=== PATIENT | male | born 1945 | race Caucasian/White ===

== ENCOUNTER → 2017-03-25 10:35 | Outpatient (CLI) | payer MEDICARE, BC ==
[2013-08-22 11:04] VITALS: BMI 26.8
[~2017-03-25 10:35] MED LIST: ASPIRIN325 MG PO; BENADRYL50 MG PO; NIASPAN1000 MG PO; PRAVACHOL10 MG PO; PRINIVIL20 MG PO; PROTONIX40 MG PO
== END | disposition home or self-care (01) ==
LOC: D.RT 10:35
DX: J44.9 Chronic obstructive pulmonary disease, unspecified (principal)

== ENCOUNTER → 2018-05-04 08:29 | Outpatient (CLI) | payer MEDICARE, BC ==
[2013-08-22 11:04] VITALS: BMI 26.8
== END | disposition home or self-care (01) ==
LOC: D.RT 08:29
DX: J44.9 Chronic obstructive pulmonary disease, unspecified (principal)

== ENCOUNTER 2018-10-11 12:04 | Inpatient (IN) | payer MEDICARE, BC ==
[2018-10-11] VITALS (12 sets, daily range): BP systolic 119–160; BP diastolic 73–94; BMI 24.8
[~2018-10-11] VITALS: Ht 175.3 cm; Wt 75.5 kg
--- NOTE | ~2018-10-11 | HP ---
PATIENT: ABIMBOLA MERIDA JR MEDICAL RECORD: [id number] ACCOUNT: [id number] LOCATION:[facility] D.2305 : [birth year] ADMISSION DATE: 10/11/18 PCP: JODI HERNANDEZ DO HISTORY AND PHYSICAL EXAMINATION HISTORY OF PRESENT ILLNESS: A 73-year-old male presented to the clinic with acute onset of bright red blood per rectum, started this morning. Moderate amounts of dark maroon blood per rectum. No formed stool. 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 Of note, the patient also recently restarted taking meloxicam. PAST MEDICAL HISTORY: Significant for hypertension, arthralgia, hyperlipidemia, COPD, diabetes, diet controlled. REVIEW OF SYSTEMS: GENERAL: No acute change in weight or appetite. HEENT: No cephalgia, visual changes, tinnitus, epistaxis, or dysphagia. CARDIOVASCULAR: Denies chest pain, denies palpitations. PULMONARY: Denies hemoptysis, denies night sweats. GASTROINTESTINAL: Denies hematemesis, hematochezia or melena. Does admit chdehb-hp-wmi blood per rectum, acute onset, starting this morning as noted above, multiple subsequent episodes. GENITOURINARY: Denies dysuria. MUSCULOSKELETAL: No acute changes. ENDOCRINE: Denies polyuria, polydipsia, or polyphagia. PHYSICAL EXAMINATION: VITAL SIGNS: Weight 170 pounds, blood pressure is 126/80, heart rate 88, respirations 18, O2 sats 98% on room air, temperature is 97.4. GENERAL: Alert, oriented, anxious secondary to the symptoms. HEENT: Head: Normocephalic, atraumatic. Eyes: Pupils are equally round and reactive. Ears: Canals patent. TMs are intact. Nose: Nares patent without drainage. Throat: No erythema. No exudates. NECK: Supple. No lymphadenopathy. No JVD. HEART: Regular rate and rhythm. No S3 or S4. No rub. LUNGS: Clear to auscultation bilaterally. Breathing is nonlabored. ABDOMEN: Soft, nontender. Bowel sounds in all 4 quadrants. RECTAL EXAM: Maroon-colored blood perirectally. No palpable rectal masses. Stool was grossly positive as well as Hemoccult positive. EXTREMITIES: Present times 4. NEUROLOGIC: Intact. SKIN: Warm and dry. No rash. LABORATORY DATA: CBC: White count 7.3, hemoglobin 14.1, hematocrit 43.6, platelets 183. ASSESSMENT AND PLAN: Acute GI bleed. The patient admitted. IV normal saline at 75 mL per hour. The patient is admitted to ICU. H&H every 8 hours. Consult GI, Dr. Mendiola. Diet, n.p.o. Protonix 40 mg IV every 12 hours. CBC and CMP on admission and in a.m. Type and screen. TRANSINT:[id number] Voice Confirmation ID: [id number] DOCUMENT ID: [id number] HISTORY AND PHYSICAL [id number] ABIMBOLA MERIDA JR, ROBERT DO at 0754 CC: [id number] DICTATION DATE: 10/11/18 114 PROJECT EXECUTIVE: 10/11/18 1237 ADM IN [place] [id number]
--- NOTE | ~2018-10-11 | MORECARE ---
CASE MANAGEMENT DISCHARGE SUMMARY PATIENT: ABIMBOLA MERIDA UNIT: [id number] ADM DATE: 10/11/18 AGE: 73 : 43 SEX: M ROOM/BED: D.1213 AUTHOR: NATHALYDOC PHYSICIAN: REFERRING PHYSICIAN: JODI HERNANDEZ DO DATE OF SERVICE: 10/14/18 Discharge Plan Patient Name: ABIMBOLA MERIDA Facility: [facility]:[place] : 1945 Planned Disposition: Home Anticipated Discharge Date: Discharge Date: 10/14/2018 Expected LOS: Initial Reviewer: [email or web address] Initial Review Date: 10/11/2018 Generated: 10/14/18 8:55 pm Comments DCP- Discharge Planning Updated by [email or web address]: Ingrid Lopez on 10/14/18 6:[address] LATE ENTRY 10/14/18 @ 1235 IMM EXPLAINED AND SERVED @ 1235 DENIES ANY DISCHARGE NEEDS DCP- Discharge Planning Updated by [email or web address]: Ingrid Lopez on 10/13/18 8:[address] LATE ENTRY 10/13/18 @ 1130 Patient Name: ABIMBOLA MERIDA Admission Status: Elective Accout number: [id number] Admission Date: 10-11-2018 : 1945 Admission Diagnosis:GASTROINTESTINAL HEMORRHAGE, UNSPECIFIED Attending: JODI HERNANDEZ Current LOS: 2 Anticipated DC Date: Planned Disposition: Home Primary Insurance: MEDICARE A & B Discharge Planning Comments: CM met with patient at bedside after obtaining verbal consent. Patient states he plans on returning home after discharge with his . Patient states he will have family transport him home via private vehicle. Patient denies any discharge needs at this time. CM will continue to follow and assist as needed for discharge planning / needs. Speech Communication Professor: Ingrid Lopez DCPIA - Discharge Planning Initial Assessment Updated by [email or web address]: Ingrid Lopez on 10/13/18 9:37 pm * Is the patient Alert and Oriented? Yes * How many steps to enter\exit or inside your home? * PCP DAVID * Pharmacy [facility] * Preadmission Environment Home with Family * ADLs Independent * Equipment Nebulizer * List name and contact numbers for known caregivers / representatives who currently or will assist patient after discharge: OMAR MERIDA [phone] * Verbal permission to speak to the caregivers and representatives has been obtained from the patient. Yes * Community resources currently utilized None * Additional services required to return to the preadmission environment? No * Can the patient safely return to the preadmission environment? Yes * Has this patient been hospitalized within the prior 30 days at any hospital? No Coverage Notice Reviewer: [email or web address] Luis F Lopez Notice Issued Date-Time: 10/14/2018 12:35 Notice Type: IM Discharge Notice Notice Delivered To: Patient Relationship to Patient: Self Medical Technicians Name: Delivery Method: HAND - Hand Delivered Regi Days: Prior Verbal Notification: Recipient Understood Notice: Yes Recipient Signature: Yes Med Rec Note Co-signed by Attending: Coverage Notice Comment: Last DP export: 10/13/18 8:39 Patient Name: ABIMBOLA MERIDA Page [id number] at 1956 All edits/amendments must be made on the electronic document DICTATION DATE: 10/14/181954 LICENSED THERAPIST: ALBERT 10/14/181954 RPT#: [id number] DC DATE:10/14/18 STATUS: DIS IN [facility] [address] [place] [address] END OF REPORT
--- NOTE | ~2018-10-11 | DS ---
PATIENT:ABIMBOLA MERIDA JR :41 MEDICAL RECORD: [id number] DISCHARGE SUMMARY ADMISSION DATE: 10/11/18 DISCHARGE DATE: 10/14/18 DATE OF ADMISSION: 10/11/2018 DATE OF DISCHARGE: 10/14/2018 ADMISSION DIAGNOSIS: Acute gastrointestinal bleed. DISCHARGE DIAGNOSIS: Acute gastrointestinal bleed, likely from hemorrhaging diverticula. CONSULTS: Gastroenterology. PROCEDURES: CT of the abdomen and pelvis with no significant findings. EGD and colonoscopy with dark blood in a diverticula, no active bleeding. HOSPITAL COURSE: The patient was admitted to the clinic with multiple episodes of maroon blood per rectum. The patient was admitted to the ICU. Serial H&H did not require transfusion. GI consulted. Had slight drop in his H&H from 14.5-10.8. Underwent EGD and colonoscopy with no active bleeding, but findings of clotted blood in a diverticula, no active bleeding. The patient was cleared for discharge home. The patient discharged to home in stable and improved condition. Anxious to go home, tolerating regular diet. We will follow up in the clinic in 2 weeks and as needed. PHYSICAL EXAMINATION: VITAL SIGNS ON DISCHARGE: Temperature 98.8, blood pressure is 133/65, heart rate 95, respirations 16, and O2 sats 94% on room air. HEART: Regular rate and rhythm. LUNGS: Clear. ABDOMEN: Soft, nontender. EXTREMITIES: Present times 4. NEUROLOGIC: Intact. LABORATORY DATA: CBC: White count 5.1, hemoglobin 10.8, hematocrit 33.2, platelets 148. Diet as tolerated. MEDICATIONS: Per med rec. DISCHARGE INSTRUCTIONS: Avoid NSAIDs. Follow up with GI. TRANSINT:[id number] Voice Confirmation ID: [id number] DOCUMENT ID: [id number] JODI HERNANDEZ DO at 0945 CC: [id number] DICTATION DATE: 10/14/18 1621 LANGUAGE THERAPIST: 10/15/18 0655 DIS IN 10/14/[address] [address]
--- NOTE | ~2018-10-11 | MORECARE ---
CASE MANAGEMENT DISCHARGE SUMMARY PATIENT: ABIMBOLA MERIDA UNIT: [id number] ADM DATE: 10/11/18 AGE: 73 : 43 SEX: M ROOM/BED: D.1213 AUTHOR: NATHALYDOC PHYSICIAN: REFERRING PHYSICIAN: JODI HERNANDEZ DO DATE OF SERVICE: 10/13/18 Discharge Plan Patient Name: ABIMBOLA MERIDA Facility: [facility]:[place] : 1945 Planned Disposition: Home Anticipated Discharge Date: Discharge Date: Expected LOS: Initial Reviewer: [email or web address] Initial Review Date: 10/11/2018 Generated: 10/13/18 10:39 pm Comments DCP- Discharge Planning Updated by [email or web address]: Ingrid Lopez on 10/13/18 8:[address] LATE ENTRY 10/13/18 @ 1130 Patient Name: ABIMBOLA MERIDA Admission Status: Elective Accout number: [id number] Admission Date: 10-11-2018 : 1945 Admission Diagnosis:GASTROINTESTINAL HEMORRHAGE, UNSPECIFIED Attending: JODI HERNANDEZ Current LOS: 2 Anticipated DC Date: Planned Disposition: Home Primary Insurance: MEDICARE A & B Discharge Planning Comments: CM met with patient at bedside after obtaining verbal consent. Patient states he plans on returning home after discharge with his . Patient states he will have family transport him home via private vehicle. Patient denies any discharge needs at this time. CM will continue to follow and assist as needed for discharge planning / needs. Answering Service Agent: Ingrid Lopez DCPIA - Discharge Planning Initial Assessment Updated by [email or web address]: Ingrid Lopez on 10/13/18 9:37 pm * Is the patient Alert and Oriented? Yes * How many steps to enter\exit or inside your home? * PCP DAVID * Pharmacy [facility] * Preadmission Environment Home with Family * ADLs Independent * Equipment Nebulizer * List name and contact numbers for known caregivers / representatives who currently or will assist patient after discharge: OMAR MERIDA [phone] * Verbal permission to speak to the caregivers and representatives has been obtained from the patient. Yes * Community resources currently utilized None * Additional services required to return to the preadmission environment? No * Can the patient safely return to the preadmission environment? Yes * Has this patient been hospitalized within the prior 30 days at any hospital? No Patient Name: ABIMBOLA MERIDA Page 53612 at 2139 All edits/amendments must be made on the electronic document DICTATION DATE: 10/13/182137 UX ARCHITECT: ALBERT 10/13/182137 RPT#: [id number] DC DATE: STATUS: ADM IN [facility] [address] [place] [address] END OF REPORT
[2018-10-11 12:56] LABS: BASOPHILS 1.3 % (0-2); HEMATOCRIT 43.6 % (42.0-54.0); HEMOGLOBIN 14.5 g/dL (13.5-17.5); IMMATURE GRANULOCYTES 0.1 % (0-5); LYMPHOCYTES 22.2 % (15-50); MCH 31.7 pg (26.0-34.0); MCHC 33.3 g/dL (31.0-37.0); MCV 95.2 fL (80.0-100.0); MEAN PLATELET VOLUME 11.8 fL (7.4-10.4); MONOCYTES 12.7 % (2-11); NEUTROPHILS 61.7 % (40-80); PLATELET COUNT 188 10x3/uL (130-400); RBC 4.58 10x6/uL (4.20-6.10); RDW 12.7 % (11.5-14.5); WBC 7.2 10x3/uL (4.8-10.8)
[2018-10-11 13:24] LABS: ALBUMIN 4.1 g/dL (3.4-5.0); ANION GAP 15.4 mmol/L (8-16); BILIRUBIN - TOTAL 0.55 mg/dL (0.2-1.3); CALCIUM 9.2 mg/dL (8.5-10.1); CARBON DIOXIDE 23.9 mmol/L (21.0-32.0); CREATININE - SERUM 1.3 mg/dL (0.6-1.3); PROTEIN - SERUM 8.1 g/dL (6.4-8.2)
[2018-10-11 13:27] LABS: POTASSIUM - SERUM 5.3 mmol/L (3.5-5.1)
[2018-10-11 21:27] LABS: BASOPHILS 0.5 % (0-2); EOSINOPHILS 1.5 % (0-7); HEMATOCRIT 41.8 % (42.0-54.0); IMMATURE GRANULOCYTES 0.2 % (0-5); LYMPHOCYTES 20.2 % (15-50); MCHC 33.5 g/dL (31.0-37.0); MCV 95.4 fL (80.0-100.0); MEAN PLATELET VOLUME 11.6 fL (7.4-10.4); MONOCYTES 11.6 % (2-11); PLATELET COUNT 190 10x3/uL (130-400); RBC 4.38 10x6/uL (4.20-6.10); RDW 12.6 % (11.5-14.5)
[2018-10-11 21:32] LABS: WBC 11.1 10x3/uL (4.8-10.8)
[2018-10-12] VITALS (10 sets, daily range): BP systolic 111–144; BP diastolic 48–85; Ht 175.3 cm; Wt 75.5 kg
[2018-10-12 04:31] LABS: HEMATOCRIT 40.2 % (42.0-54.0); HEMOGLOBIN 13.1 g/dL (13.5-17.5)
[2018-10-12 04:41] LABS: INR 1.08 (0.85-1.17); PROTIME 13.5 SECONDS (11.6-15.0)
[2018-10-12 04:47] LABS: ANION GAP 13.2 mmol/L (8-16); CALCIUM 8.7 mg/dL (8.5-10.1); CARBON DIOXIDE 26.8 mmol/L (21.0-32.0); CREATININE - SERUM 1.2 mg/dL (0.6-1.3)
[2018-10-12 14:19] LABS: HEMATOCRIT 37.6 % (42.0-54.0); HEMOGLOBIN 12.5 g/dL (13.5-17.5)
[2018-10-12 21:00] LABS: HEMATOCRIT 33.9 % (42.0-54.0); HEMOGLOBIN 11.1 g/dL (13.5-17.5)
[2018-10-13] VITALS (14 sets, daily range): BP systolic 101–155; BP diastolic 54–91
[2018-10-13 04:53] LABS: BASOPHILS 1.4 % (0-2); HEMATOCRIT 34.3 % (42.0-54.0); HEMOGLOBIN 11.6 g/dL (13.5-17.5); LYMPHOCYTES 33.1 % (15-50); MCHC 33.8 g/dL (31.0-37.0); MCV 94.8 fL (80.0-100.0); MEAN PLATELET VOLUME 11.6 fL (7.4-10.4); MONOCYTES 13.7 % (2-11); NEUTROPHILS 49.8 % (40-80); PLATELET COUNT 154 10x3/uL (130-400); RBC 3.62 10x6/uL (4.20-6.10); RDW 12.8 % (11.5-14.5)
[2018-10-13 05:09] LABS: WBC 5.1 10x3/uL (4.8-10.8)
[2018-10-13 05:23] LABS: ALBUMIN 3.3 g/dL (3.4-5.0); ANION GAP 11.6 mmol/L (8-16); BILIRUBIN - TOTAL 0.44 mg/dL (0.2-1.3); CALCIUM 8.1 mg/dL (8.5-10.1); CREATININE - SERUM 1.1 mg/dL (0.6-1.3); POTASSIUM - SERUM 3.6 mmol/L (3.5-5.1); PROTEIN - SERUM 6.3 g/dL (6.4-8.2)
[2018-10-13 14:27] LABS: HEMATOCRIT 36.1 % (42.0-54.0); HEMOGLOBIN 11.9 g/dL (13.5-17.5)
[2018-10-13 20:52] LABS: HEMATOCRIT 33.8 % (42.0-54.0); HEMOGLOBIN 11.2 g/dL (13.5-17.5)
[2018-10-14] VITALS: BP 113/53
[2018-10-14 04:00] VITALS: BP 106/46
[2018-10-14 06:47] LABS: BASOPHILS 1.4 % (0-2); EOSINOPHILS 2.3 % (0-7); HEMATOCRIT 33.2 % (42.0-54.0); HEMOGLOBIN 10.8 g/dL (13.5-17.5); IMMATURE GRANULOCYTES 0.2 % (0-5); MCHC 32.5 g/dL (31.0-37.0); MCV 95.4 fL (80.0-100.0); MEAN PLATELET VOLUME 11.7 fL (7.4-10.4); MONOCYTES 11.5 % (2-11); NEUTROPHILS 60.6 % (40-80); PLATELET COUNT 148 10x3/uL (130-400); RBC 3.48 10x6/uL (4.20-6.10); WBC 5.1 10x3/uL (4.8-10.8)
[2018-10-14 07:00] LABS: CALCIUM 8.1 mg/dL (8.5-10.1); CARBON DIOXIDE 26.3 mmol/L (21.0-32.0); CREATININE - SERUM 1.1 mg/dL (0.6-1.3); POTASSIUM - SERUM 3.3 mmol/L (3.5-5.1)
[2018-10-14 11:25] VITALS: BP 130/60
[2018-10-14 15:29] VITALS: BP 133/65
== END 2018-10-14 17:30 | disposition home or self-care (01) | DRG 378 ==
LOC: D.SDCHOLD 12:04 → D.ICU 12:04 → D.M3 10-13 10:43
PROVIDERS: Family Medicine; Internal Medicine Gastroenterology
PROC: 0DB68ZX Excision of Stomach, Via Natural or Artificial Opening Endoscopic, Diagnostic (ICD-10-PCS; 2018-10-14)
PROC: 0DB58ZX Excision of Esophagus, Via Natural or Artificial Opening Endoscopic, Diagnostic (ICD-10-PCS; 2018-10-14)
PROC: 0DBP8ZZ Excision of Rectum, Via Natural or Artificial Opening Endoscopic (ICD-10-PCS; 2018-10-14)
PROC: 0DB98ZX Excision of Duodenum, Via Natural or Artificial Opening Endoscopic, Diagnostic (ICD-10-PCS; principal; 2018-10-14 07:00)
DX: K57.31 Diverticulosis of large intestine without perforation or abscess with bleeding (principal); D62 Acute posthemorrhagic anemia; I10 Essential (primary) hypertension; J44.9 Chronic obstructive pulmonary disease, unspecified; E11.9 Type 2 diabetes mellitus without complications; K44.9 Diaphragmatic hernia without obstruction or gangrene; K20.9 Esophagitis, unspecified; K29.70 Gastritis, unspecified, without bleeding; K29.80 Duodenitis without bleeding; K64.8 Other hemorrhoids; K62.1 Rectal polyp

== ENCOUNTER → 2019-05-01 10:32 | Outpatient (CLI) | payer MEDICARE, BC ==
[2018-10-12 11:01] VITALS: BMI 24.5
== END | disposition home or self-care (01) ==
LOC: D.RT 10:32
PROVIDERS: ATTEND Internal Medicine Pulmonary Disease
DX: J44.9 Chronic obstructive pulmonary disease, unspecified (principal)

== ENCOUNTER → 2020-07-13 10:16 | Outpatient (CLI) | payer MEDICARE, BC ==
[2018-10-12 11:01] VITALS: BMI 24.5
== END | disposition home or self-care (01) ==
LOC: D.LABREF 10:16
PROVIDERS: ATTEND Internal Medicine Pulmonary Disease
DX: J44.9 Chronic obstructive pulmonary disease, unspecified (principal)

== ENCOUNTER → 2020-07-16 08:41 | Outpatient (CLI) | payer MEDICARE, BC ==
[2018-10-12 11:01] VITALS: BMI 24.5
== END | disposition home or self-care (01) ==
LOC: D.RT 08:41
PROVIDERS: ATTEND Internal Medicine Pulmonary Disease
DX: J44.9 Chronic obstructive pulmonary disease, unspecified (principal)

== ENCOUNTER 2021-02-12 11:36 | Day surgery (SDC) | payer MEDICARE, BC ==
[~2021-02-12] VITALS: Ht 175.3 cm; Wt 63.6 kg
[2021-02-12 12:04] LABS: BASOPHILS 0.6 % (0-2); EOSINOPHILS 0.4 % (0-7); HEMATOCRIT 38.9 % (42.0-54.0); HEMOGLOBIN 12.4 g/dL (13.5-17.5); IMMATURE GRANULOCYTES 0.1 % (0-5); LYMPHOCYTE ABS# 0.78 10x3/uL (1.32-3.57); LYMPHOCYTES 11.4 % (15-50); MCH 30.2 pg (26.0-34.0); MCHC 31.9 g/dL (31.0-37.0); MCV 94.9 fL (80.0-100.0); MONOCYTES 6.7 % (2-11); NEUTROPHIL ABS# 5.53 10x3/uL (1.78-5.38); NEUTROPHILS 80.8 % (40-80); RDW 14.5 % (11.5-14.5); WBC 6.9 10x3/uL (4.8-10.8)
[2021-02-12 12:06] LABS: PLATELET COUNT 187 10x3/uL (130-400)
[2021-02-12 12:07] LABS: ANION GAP 20.7 mmol/L (8-16); CALCIUM 9.1 mg/dL (8.5-10.1); CARBON DIOXIDE 20.5 mmol/L (21.0-32.0); CREATININE - SERUM 1.5 mg/dL (0.6-1.3); POTASSIUM - SERUM 4.2 mmol/L (3.5-5.1)
[2021-02-12] MEDS ORDERED: GEMFIBROZIL600 MG PO (13:50)
[2021-02-12] MEDS ORDERED: CARAFATE1 G PO (13:51)
[2021-02-12] MEDS ORDERED: PROTONIX40 MG PO (13:51)
[2021-02-12] MEDS ORDERED: FLOMAX0.4 MG PO (13:51)
[2021-02-12] MEDS ORDERED: MOBIC7.5 MG PO (13:52)
[2021-02-12 13:58] VITALS: BP 114/59; Ht 175.3 cm; Wt 63.6 kg
--- NOTE | 2021-02-12 18:37 | NUR ---
1837 TWO AREAS OF HEMORRHOID ABLATED WITH HOT BX
--- NOTE | 2021-02-12 20:08 | NUR ---
1945 IV REMOVED AND INSTRUCTIONS GIVEN.
--- NOTE | 2021-02-13 09:44 | HP ---
PATIENT: ABIMBOLA MERIDA JR MEDICAL RECORD: [id number] ACCOUNT: [id number] LOCATION:[facility] : [birth year] ADMISSION DATE: 02/12/21 PCP: JODI HERNANDEZ DO HISTORY AND PHYSICAL EXAMINATION CHIEF COMPLAINT: Rectal polyp. HISTORY OF PRESENT ILLNESS: The patient was referred by Dr. Mendiola. The patient's primary care physician is Dr. Hernandez. He is here for colonoscopy and polypectomy today. The risks, possible complications, and alternatives of procedure were explained to the patient. He elects to proceed. ALLERGIES: No known drug allergies. HOME MEDICATIONS: Have been reviewed. SOCIAL HISTORY: Ex-smoker. PAST MEDICAL AND SURGICAL HISTORY: COPD, hypertension, gastroesophageal reflux, diabetes, retina surgery as well as cataracts. PHYSICAL EXAMINATION: GENERAL: The patient does not appear acutely ill. He does not appear chronically ill. VITAL SIGNS: Reviewed. EARS: External ears appear normal. EYES: Extraocular movements are intact. NECK: Trachea is midline. CHEST: No intercostal retractions. PULMONARY: Nonlabored. No stridor. IMPRESSION: Rectal polyp. PLAN: Colonoscopy with polypectomy. TRANSINT:[id number] Voice Confirmation ID: [id number] DOCUMENT ID: [id number] JODI MORA MD at 0944 CC: MAGNO MIDDLETON M.D. [id number] DICTATION DATE: 02/12/211812 LEGEND MAKER: 02/12/212045 [facility] 02/12/21 [place] [id number] [place] [address]
--- NOTE | 2021-02-13 09:44 | OP ---
PATIENT NAME: ABIMBOLA MERIDA JR MEDICAL RECORD: [id number] :41 LOCATION:D.OPS ADMISSION DATE: SURGEON: JODI MORA MD DATE OF OPERATION: 02/12/2021 PRINCIPAL DIAGNOSIS: History of a rectal polyp. POSTOPERATIVE DIAGNOSES: 1. Scar at the site of the rectal polypectomy without evidence of regrowth of the polyp. 2. Inadequate colonic prep. PROCEDURES: 1. Total colonoscopy to cecum. 2. Hot biopsy of the scar where the rectal polyp had been removed. SURGEON: Jodi Mora MD. MEN'S GARMENT FITTER: None. BLOOD LOSS: Minimal. ANESTHESIA: IV sedation. COMPLICATIONS: None. The risks, possible complications, and alternatives of the procedure were explained to the patient. He elects to proceed. Discussion specifically included, but was not limited to, bleeding requiring emergency reoperation, infection as well as endoscopic perforation. ENDOSCOPIC COURSE: The patient was taken to the endoscopy suite electively on 02/12/2021. IV sedation was induced by the anesthesia staff. The patient was placed in the Darling position. A digital rectal examination was performed. A colonoscope was inserted through the anus. It was easily advanced to the cecum. The prep was inadequate. I irrigated and aspirated extensively. There was a lot of fecal and vegetable material within the colon, which made a detailed survey of the colonic castellanos impossible. I dragged the folds. We utilized narrow band imaging as well as normal imaging. In the rectum, I could only identify rectal scar. I went from the anus up into the sigmoid colon and back 3 times and I could only find a scar. Hot biopsy of the scar was performed. A retroflexed view was obtained in the rectum. I then unretroflexed the scope and removed it under direct vision. I will see the patient in my office in 2-3 weeks. Due to the inadequate prep, I am going to plan for a repeat procedure in 1 year. TRANSINT:[id number] Voice Confirmation ID: [id number] DOCUMENT ID: [id number] OPERATIVE REPORT [id number] MAGNOLIAABIMBOLA JODI LAWLER JR, MD at 0944 CC: Silvio BENTLEY ROBERT [id number] DICTATION DATE: 02/12/21 1856 [employer]JOR LEAGUE BASEBALL UMPIRE: 02/13/21 0051 [facility] 02/12/21 [facility] [address] [place] [address]
== END 2021-02-12 20:08 | disposition home or self-care (01) ==
LOC: D.OPS 11:36
PROVIDERS: Anesthesiology; ATTEND Surgery
DX: Z86.010 Personal history of colon polyps (principal); K63.89 Other specified diseases of intestine; I10 Essential (primary) hypertension; E11.9 Type 2 diabetes mellitus without complications; J44.9 Chronic obstructive pulmonary disease, unspecified; K21.9 Gastro-esophageal reflux disease without esophagitis